=== PATIENT | male | born 1980 | race Caucasian/White ===

== ENCOUNTER 2024-03-12 23:42 | Emergency (ER) | payer SELFPAY ==
[~2024-03-12] VITALS: Ht 180.3 cm; Wt 86.2 kg
[2024-03-12] MEDS ORDERED: BOOSTRIX IM ONE (23:52)
[2024-03-13] MEDS: BOOSTRIX IM ONE
[2024-03-13 00:01] VITALS: BP 156/84; PULSE 93; RESP 20; TEMP 98
[2024-03-13 00:17] VITALS: BP_SYST 154; BP_SYST 156; BP_DIAS 84; PULSE 93; RESP 20; TEMP 98
[2024-03-13] MEDS ORDERED: CEPH500C PO (01:15)
[2024-03-13 01:16] VITALS: BP 160/85; PULSE 96; RESP 20; TEMP 98; O2SAT 98
== END 2024-03-13 01:20 | disposition home or self-care (01) ==
LOC: ER 23:42
DX: S61.411A Laceration without foreign body of right hand, initial encounter (principal); X58.XXXA Exposure to other specified factors, initial encounter; Y93.89 Activity, other specified; Y92.89 Other specified places as the place of occurrence of the external cause; Y99.8 Other external cause status
CPT/HCPCS: 12045; 90471; 90715; 99284; 73130-RT